=== PATIENT | female | born 1985 | race Caucasian/White ===

== ENCOUNTER 2017-08-19 16:53 | Inpatient (IN) | payer OTHER ==
[~2017-08-19] VITALS: Ht 182.9 cm; Wt 112.7 kg
[2017-08-19] VITALS (7 sets, daily range): BP systolic 115–127; BP diastolic 63–78
[~2017-08-19 16:53] MED LIST: COUMADIN5 MG PO; LOVENOX150 MG/1 M SC; LOVENOX300 MG/3 M SC
[2017-08-19] MEDS ORDERED: PRENATAL TABLE1 EAC3 PO (17:25)
[2017-08-19] MEDS ORDERED: HEPARIN SO5000 UNIT3 SC (17:27)
[2017-08-19 19:53] LABS: EOSINOPHIL (%) 0.7 % (0-5); EOSINOPHIL COUNT 0.1 K/uL (0-0.3); HEMATOCRIT 37.9 % (36.0-46.0); IMMATURE GRANULOCYTE (%) 0.4 % (0.0-0.7); IMMATURE GRANULOCYTE COUNT 0.1 K/uL; INSTRUMENT ABS NEUTROPHIL CT 8.5 K/uL; LYMPHOCYTE COUNT 2.5 K/uL (1.0-2.8); MCHC 33.8 G/DL (30.0-36.0); MCV 85.9 FL (83-99); MONOCYTE COUNT 1.1 K/uL (0-0.8); NEUTROPHIL (%) 69.5 % (45-76); NEUTROPHIL COUNT 8.5 K/uL (1.8-6.4); PLATELET COUNT 201 K/uL (156-360); RBC DIS.WIDTH-CV 13.2 % (11.8-14.6); RBC DIS.WIDTH-SD 40.9 % (39-53); RED BLOOD COUNT 4.41 M/uL (3.80-5.20); WHITE BLOOD COUNT 12.2 K/uL (4.1-10.2)
[2017-08-20] VITALS (32 sets, daily range): BP systolic 104–145; BP diastolic 59–85
[2017-08-20] MEDS ORDERED: IBUPROFEN800 MG PO (14:54)
[2017-08-20] MEDS ORDERED: TRAMADOL HCL50 MG PO (16:53)
[2017-08-20] MEDS ORDERED: LOVENOX60 MG/0.6 SC (16:53)
[2017-08-21 07:10] LABS: EOSINOPHIL (%) 0.3 % (0-5); EOSINOPHIL COUNT 0.1 K/uL (0-0.3); HEMATOCRIT 32.5 % (36.0-46.0); IMMATURE GRANULOCYTE (%) 0.7 % (0.0-0.7); IMMATURE GRANULOCYTE COUNT 0.1 K/uL; INSTRUMENT ABS NEUTROPHIL CT 14.7 K/uL; LYMPHOCYTE COUNT 3.4 K/uL (1.0-2.8); MCH 29.4 PG (29.0-34.0); MCHC 33.5 G/DL (30.0-36.0); MCV 87.6 FL (83-99); MONOCYTE (%) 7.5 % (3-12); MONOCYTE COUNT 1.5 K/uL (0-0.8); NEUTROPHIL (%) 74.3 % (45-76); NEUTROPHIL COUNT 14.7 K/uL (1.8-6.4); PLATELET COUNT 159 K/uL (156-360); RBC DIS.WIDTH-CV 13.2 % (11.8-14.6); RBC DIS.WIDTH-SD 42.3 % (39-53); RED BLOOD COUNT 3.71 M/uL (3.80-5.20); WHITE BLOOD COUNT 19.7 K/uL (4.1-10.2)
[2017-08-21 07:12] LABS: MEAN PLAT.VOLUME 10.8 uM^3 (9.5-12.4)
[2017-08-21 07:45] VITALS: BP 113/57
[2017-08-21] MEDS ORDERED: KEFLEX500 MG PO (10:58)
[2017-08-21 14:48] VITALS: BP 114/64
[2017-08-21 22:25] VITALS: BP 117/56
[2017-08-22 07:10] VITALS: BP 126/55
== END 2017-08-22 13:20 | disposition home or self-care (01) | DRG 775 ==
LOC: LDRP-OP 16:53 → 2WEST 16:54 → LDRP-OP 09-22 11:36
PROVIDERS: Midwife; Nurse Practitioner
PROC: 0KQM0ZZ Repair Perineum Muscle, Open Approach (ICD-10-PCS; principal; 2017-08-20)
PROC: 10E0XZZ Delivery of Products of Conception, External Approach (ICD-10-PCS; principal; 2017-08-20)
PROC: 3E0R3BZ Introduction of Anesthetic Agent into Spinal Canal, Percutaneous Approach (ICD-10-PCS; principal; 2017-08-20)
PROC: 3E0P7VZ Introduction of Hormone into Female Reproductive, Via Natural or Artificial Opening (ICD-10-PCS; principal; 2017-08-20)
PROC: 00HU33Z Insertion of Infusion Device into Spinal Canal, Percutaneous Approach (ICD-10-PCS; principal; 2017-08-20)
PROC: 10907ZC Drainage of Amniotic Fluid, Therapeutic from Products of Conception, Via Natural or Artificial Opening (ICD-10-PCS; principal; 2017-08-20)
PROC: 3E0P3VZ Introduction of Hormone into Female Reproductive, Percutaneous Approach (ICD-10-PCS; principal; 2017-08-20)
DX: O71.4 Obstetric high vaginal laceration alone (principal); D68.52 Prothrombin gene mutation; O99.12 Other diseases of the blood and blood-forming organs and certain disorders involving the immune mechanism complicating childbirth; Z37.0 Single live birth; Z3A.39 39 weeks gestation of pregnancy; Z86.718 Personal history of other venous thrombosis and embolism; Z87.891 Personal history of nicotine dependence
CPT/HCPCS: 85025; C1755; G0378; J0595; J1650; J3010; Q0169

== ENCOUNTER 2018-05-01 09:48 | Emergency (ER) | payer SELFPAY ==
[~2018-05-01] VITALS: Ht 182.9 cm; Wt 126.1 kg
[~2018-05-01 09:48] MED LIST changes: +HEPARIN SO5000 UNIT3 SC; +IBUPROFEN800 MG PO; +KEFLEX500 MG PO; +LOVENOX60 MG/0.6 SC; +PRENATAL TABLE1 EAC3 PO; +TRAMADOL HCL50 MG PO
[2018-05-01 10:37] LABS: BASOPHIL (%) 0.5 % (0-1); EOSINOPHIL (%) 1.6 % (0-5); EOSINOPHIL COUNT 0.1 K/uL (0-0.3); HEMATOCRIT 39.3 % (36.0-46.0); HEMOGLOBIN 13.6 G/DL (11.9-15.5); IMMATURE GRANULOCYTE (%) 0.2 % (0.0-0.7); LYMPHOCYTE (%) 25.8 % (15-42); LYMPHOCYTE COUNT 2.1 K/uL (1.0-2.8); MCH 29.9 PG (29.0-34.0); MCHC 34.6 G/DL (30.0-36.0); MCV 86.4 FL (83-99); MONOCYTE COUNT 0.6 K/uL (0-0.8); NEUTROPHIL (%) 64.9 % (45-76); NEUTROPHIL COUNT 5.4 K/uL (1.8-6.4); PLATELET COUNT 212 K/uL (156-360); RBC DIS.WIDTH-CV 12.6 % (11.8-14.6); RBC DIS.WIDTH-SD 39.8 % (39-53); RED BLOOD COUNT 4.55 M/uL (3.80-5.20); WHITE BLOOD COUNT 8.3 K/uL (4.1-10.2)
[2018-05-01 10:46] LABS: D-DIMER ELISA < 150.00 ng/mLDDU (<230)
[2018-05-01 10:47] LABS: CHLORIDE 109 mEq/L (99-109); POTASSIUM 3.9 mEq/L (3.7-5.4); SODIUM 140 mEq/L (136-147)
[2018-05-01 10:48] LABS: GLUCOSE 94 mg/dL (70-99)
[2018-05-01 10:52] LABS: CREATININE 0.7 mg/dL (0.6-1.3); GFR ESTIMATE (CALCULATED) > 59 mL/min/
[2018-05-01 10:53] LABS: UREA NITROGEN (BUN) 11 mg/dL (9-23)
[2018-05-01 10:59] LABS: TROP-I INTERPRETATION NEGATIVE; TROPONIN-I < 0.01 ng/mL (0.0-0.30)
[2018-05-01] MEDS ORDERED: MOTRIN800 MG PO (11:16)
[2018-05-01 11:31] VITALS: BP 135/77
== END 2018-05-01 11:31 | disposition home or self-care (01) ==
LOC: EME 09:48
PROVIDERS: Emergency Medicine
DX: R07.89 Other chest pain (principal); Z86.718 Personal history of other venous thrombosis and embolism; Z79.82 Long term (current) use of aspirin; F17.200 Nicotine dependence, unspecified, uncomplicated; Z88.6 Allergy status to analgesic agent
CPT/HCPCS: 71045; 80048; 84484; 85025; 85379; 93005; 99281; 99283